=== PATIENT | female | born 1990 | race Caucasian/White ===

== ENCOUNTER 2018-04-10 02:05 | Observation (INO) | payer OTHER, MEDICAID, SELFPAY ==
[2018-04-10 02:55] VITALS: BP 123/86
== END 2018-04-10 05:10 | disposition home or self-care (01) ==
LOC: LABOR 02:10
PROVIDERS: Admitting Provider Family Medicine; PCP Family Medicine; Visit Provider Family Medicine
DX: Z34.83 Encounter for supervision of other normal pregnancy, third trimester (principal); Z3A.40 40 weeks gestation of pregnancy
CPT/HCPCS: 01967; 59025; 59050; G0378; G0379

== ENCOUNTER 2018-04-10 15:44 | Inpatient (IN) | payer OTHER, MEDICAID, SELFPAY ==
[2018-04-10 17:11] LABS: Add Manual Diff / Slide Review NO; Basophils Percent Auto 0.7 % (0-2); Eosinophils Percent Auto 1.4 % (2-4); Hematocrit 37.9 % (36-46); Hemoglobin 12.8 g/dL (12.0-16.0); Lymphocytes Percent Auto 7.8 % (25-40); Mean Corpuscular HGB Conc 33.8 % (30-36); Mean Corpuscular Volume 85.8 fL (80-100); Monocytes Percent Auto 6.5 % (3-14); Neutrophils Absolute Auto 10400 /uL (3000-5900); Neutrophils Percent Auto 83.6 % (50-75); Platelet Count 159 X10^3/uL (150-400); Red Blood Cell Count 4.41 X10^6/uL (4.0-5.2); Red Cell Distribution Width 13.3 % (11.6-14.8); White Blood Cell Count 12.5 X10^3/uL (4.5-11.0)
[2018-04-10 17:36] VITALS: BP 123/80
--- NOTE | 2018-04-10 19:16 | PM.OBHP.1 ---
OB HPI History of Present Illness Chief complaint: EVAL Narrative: Marissa Patrick is a 28 year old who presents at 40 and 2 7 weeks gestation in active labor. Patient was dilated to 5 cm at the time of presentation with a category 1 strip. Maternal blood type is A positive, antibody negative, serology nonreactive, gonorrhea and Chlamydia negative, rubella immune, hepatitis B negative, HIV negative. Group B strep negative. The patient transferred care at 30 weeks after moving to the area. Early ultrasound at 11 weeks with an EDC of April 08, 2018. Evaluation Evaluation Laboratory results: Laboratory Tests 04/10/18 04/10/18 16:20 16:30 WBC 12.5 H RBC 4.41 Hgb 12.8 Hct 37.9 MCV 85.8 MCH 29.0 MCHC 33.8 RDW 13.3 Plt Count 159 Neut % (Auto) 83.6 H Lymph % (Auto) 7.8 L [place] % (Auto) 6.5 Eos % (Auto) 1.4 L Baso % (Auto) 0.7 Neut # (Auto) 00920 H Blood Type A Positive Antibody Screen [facility] Social History marital status: household members: spouse and children Smoking Status: Never smoker Meds Home Medications Medication Instructions Recorded Confirmed Type 1 tab PO DAILY 04/10/18 04/10/18 History calcium carbonate [Tums] 300 mg PO TID PRN 04/10/18 04/10/18 History Allergies Allergy/AdvReac Type Severity Reaction Status Date / Time amoxicillin Allergy Unknown Verified 04/10/18 02:54 Review of Systems Review of Systems All systems reviewed & are unremarkable except as noted in HPI and below Exam Vital Signs (past 8 hours): Vital Signs - 8 hr 04/10/18 17:36 Blood Pressure 123/80 H GENERAL: Well-developed well-nourished woman in no acute distress. HEENT: Normocephalic, atraumatic, pupils equal and reactive to light and accommodation. Extraocular movements are intact. LUNG: Clear to auscultation bilaterally. No wheeze or crackles or rhonchi. No increased work in breathing. ABDOMEN: Soft, appropriately tender, gravid CV: Regular rate and rhythm. No murmurs rubs or gallops. AFFECT: Alert and oriented X3. Conversational and appropriate. Sterile vaginal exam 1800:7 to 8 cm/90%/-2 - artificial rupture of membranes with light meconium heart rate: Category 1 Objective Labs Result Diagrams: 04/10/18 16:30 Labs: Laboratory Results - last 24 hr 04/10/18 04/10/18 16:20 16:30 WBC 12.5 H RBC 4.41 Hgb 12.8 Hct 37.9 MCV 85.8 MCH 29.0 MCHC 33.8 RDW 13.3 Plt Count 159 Neut % (Auto) 83.6 H Lymph % (Auto) 7.8 L [place] % (Auto) 6.5 Eos % (Auto) 1.4 L Baso % (Auto) 0.7 Neut # (Auto) 17312 H Blood Type A Positive Antibody Screen Negative Assessment and Plan (1) Normal labor: Problem details: 1. Anticipate spontaneous vaginal delivery. Current visit: Yes Status: Acute
--- NOTE | 2018-04-10 19:20 | P.HPOB_ITS ---
OB HPI History of Present Illness Chief complaint: EVAL Narrative: Marissa Patrick is a 28 year old who presents at 40 and 2 7 weeks gestation in active labor. Patient was dilated to 5 cm at the time of presentation with a category 1 strip. Maternal blood type is A positive, antibody negative, serology nonreactive, gonorrhea and Chlamydia negative, rubella immune, hepatitis B negative, HIV negative. Group B strep negative. The patient transferred care at 30 weeks after moving to the area. Early ultrasound at 11 weeks with an EDC of April 08, 2018. Evaluation Evaluation Laboratory results: Laboratory Tests 04/10/18 04/10/18 16:20 16:30 WBC 12.5 H RBC 4.41 Hgb 12.8 Hct 37.9 MCV 85.8 MCH 29.0 MCHC 33.8 RDW 13.3 Plt Count 159 Neut % (Auto) 83.6 H Lymph % (Auto) 7.8 L [place] % (Auto) 6.5 Eos % (Auto) 1.4 L Baso % (Auto) 0.7 Neut # (Auto) 95326 H Blood Type A Positive Antibody Screen [facility] Social History marital status: household members: spouse and children Smoking Status: Never smoker Meds Home Medications Medication Instructions Recorded Confirmed Type 1 tab PO DAILY 04/10/18 04/10/18 History calcium carbonate [Tums] 300 mg PO TID PRN 04/10/18 04/10/18 History Allergies Allergy/AdvReac Type Severity Reaction Status Date / Time amoxicillin Allergy Unknown Verified 04/10/18 02:54 Review of Systems Review of Systems All systems reviewed & are unremarkable except as noted in HPI and below Exam Vital Signs (past 8 hours): Vital Signs - 8 hr 3 04/10/18 17:36 Blood Pressure 123/80 H GENERAL: Well-developed well-nourished woman in no acute distress. HEENT: Normocephalic, atraumatic, pupils equal and reactive to light and accommodation. Extraocular movements are intact. LUNG: Clear to auscultation bilaterally. No wheeze or crackles or rhonchi. No increased work in breathing. ABDOMEN: Soft, appropriately tender, gravid CV: Regular rate and rhythm. No murmurs rubs or gallops. AFFECT: Alert and oriented X3. Conversational and appropriate. Sterile vaginal exam 1800:7 to 8 cm/90%/-2 - artificial rupture of membranes with light meconium heart rate: Category 1 Objective Labs Result Diagrams: 04/10/18 16:30 Labs: Laboratory Results - last 24 hr 04/10/18 04/10/18 16:20 16:30 WBC 12.5 H RBC 4.41 Hgb 12.8 Hct 37.9 MCV 85.8 MCH 29.0 MCHC 33.8 RDW 13.3 Plt Count 159 Neut % (Auto) 83.6 H Lymph % (Auto) 7.8 L [place] % (Auto) 6.5 Eos % (Auto) 1.4 L Baso % (Auto) 0.7 Neut # (Auto) 10523 H Blood Type A Positive Antibody Screen Negative Assessment and Plan (1) Normal labor: Problem details: 1. Anticipate spontaneous vaginal delivery. Current visit: Yes Status: Acute
--- NOTE | 2018-04-10 20:56 | PM.OBPRVD ---
Narrative: Patient is a 28-year-old G1 P 1-2 who presented at 40 and 2 7 weeks in active labor. Patient progressed without event. She did receive an epidural. She began stage I at approximately 2:30 p.m.. At approximately 8:00 p.m. patient began stage II of labor. She pushed for approximately 27 min. Patient delivered healthy female in the OP position at 8:27 p.m. sustaining a second-degree tear. was placed on maternal abdomen. Apgars of 9 and 9. Cord was clamped after it stopped pulsating. Pitocin was started after delivery of the Placenta delivered at 8:38 p.m intact. Second-degree tear was repaired with 3 0 chromic without difficulty. Hemostasis was achieved. Patient tolerated the procedure well. Estimated blood loss was 250 mL
[2018-04-11] MEDS: IBUPROFEN 600 MG TABLET PO ×2 (03:48→09:16)
[2018-04-11 06:30] LABS: Hematocrit 35.1 % (36-46)
[2018-04-11] MEDS: PRENATAL VIT,CALC/IRON/FOLIC 1 TABLET 1 TAB PO (09:16)
[2018-04-11] MEDS: DOCUSATE 250 MG CAPSULE PO (09:16)
--- NOTE | 2018-04-11 15:28 | PM.DS.1 ---
History of Present Illness Chief complaint: LABOR&DELIVERY Discharge Providers Date of admission: 04/10/18 15:44 Primary care physician: Kari Farias MD Consults: 04/10/18 21:01 Consult to Optical Systems Engineer Routine Comment: Discharge provider: Kari Farias MD Summary Discharge Diagnosis: Status post spontaneous vaginal delivery healthy female Marissa Patrick is a 28 year old who presents at 40 and 2 7 weeks gestation in active labor. Patient was dilated to 5 cm at the time of presentation with a category 1 strip. Maternal blood type is A positive, antibody negative, serology nonreactive, gonorrhea and Chlamydia negative, rubella immune, hepatitis B negative, HIV negative. Group B strep negative. The patient transferred care at 30 weeks after moving to the area. Early ultrasound at 11 weeks with an EDC of April 08, 2018. Time Spent with Patient Less than 30 minutes Exam Vital Signs (past 8 hours): GENERAL: Well-developed well-nourished woman in no acute distress. HEENT: Normocephalic, atraumatic, pupils equal and reactive to light and accommodation. LUNG: Clear to auscultation bilaterally. No wheeze or crackles or rhonchi. No increased work in breathing. abdomen: Soft, appropriately tender AFFECT: Alert and oriented X3. Conversational and appropriate. Objective Labs Result Diagrams: 04/11/18 06:16 Labs: Laboratory Results - last 24 hr 04/10/18 04/10/18 04/11/18 16:20 16:30 06:16 WBC 12.5 H RBC 4.41 Hgb 12.8 12.0 Hct 37.9 35.1 L MCV 85.8 MCH 29.0 MCHC 33.8 RDW 13.3 Plt Count 159 Neut % (Auto) 83.6 H Lymph % (Auto) 7.8 L [place] % (Auto) 6.5 Eos % (Auto) 1.4 L Baso % (Auto) 0.7 Neut # (Auto) 11180 H Blood Type A Positive Antibody Screen Negative Discharge Plan Discharge Plan Patient Disposition: Home, Self-Care Discharge comment: Follow-up cousins 4-6 weeks. Would recommend appointment on Friday Discharge Med Rec/Prescriptions Prescriptions: New oxycodone-acetaminophen 5-325 mg Tablet 2 tab PO Q4HR Qty: 30 RF: 0 ibuprofen 600 mg Tablet 600 mg PO Q6HR PRN (Reason: Pain, Mild) Qty: 30 RF: 0 docusate sodium 250 mg Capsule 250 mg PO DAILY Qty: 30 RF: 0 [id number] [Prenatabs Rx] 29 mg iron- 1 mg Tablet 1 tab PO DAILY Qty: 30 RF: 0 Continue 1 tab tablet 1 tab PO DAILY RF: 0 Discontinued calcium carbonate [Tums] 300 mg (750 mg) Tablet,Chewable 300 mg PO TID PRN (Reason: Heartburn) RF: 0 Follow up/Referrals: Kari Farias MD [Primary Care Provider] - 6 Weeks Provider Discharge Instructions Diet: Diet as Tolerated Visit Report/Discharge Packet Instructions: DI for Labor and Delivery, Vaginal , DI for Vaginal Bleeding Visit Report Forms: Stroke Signs & Symptoms Discharge Data Primary Care Provider: Kair Farias Attending Provider: Sharee Spangler Admit Date/Time: 04/10/18 15:44 Discharges patient from system. Discharge Date/Time: 04/11/18 18:13
[2018-04-11 16:17] VITALS: BP 123/80
== END 2018-04-11 18:13 | disposition home or self-care (01) | DRG 775 ==
PROVIDERS: Admitting Provider Family Medicine; PCP Family Medicine; Visit Provider Family Medicine
DX: O70.1 Second degree perineal laceration during delivery (principal); Z37.0 Single live birth; Z3A.40 40 weeks gestation of pregnancy
CPT/HCPCS: 36415; 59050; 59409; 85014; 85018; 85025; 86850; 86900; 86901; G0378; G0379